=== PATIENT | male | born 1950 | race Caucasian/White ===

== ENCOUNTER 2017-07-18 03:31 | Inpatient (IN) | payer OTHER ==
[~2017-07-18] VITALS: Ht 165.1 cm; Wt 73.3 kg
[2017-07-18 05:05] LABS: BASOPHIL % 0.1 % (0-2); PLATELET COUNT 267 x10^3mcL (130-400); RED CELL DISTRIBUTION WIDTH 13.8 % (11.5-14.5)
[2017-07-18 05:18] LABS: CALCIUM 9.4 mg/dL (8.5-10.1); CARBON DIOXIDE 24.4 mmol/L (21-32); CHLORIDE SERUM 99 mmol/L (98-107); CREATININE SERUM 1.1 mg/dL (0.7-1.3); GFR1 > 60 mL/min; GLUCOSE SERUM 213 mg/dL (74-106); POTASSIUM SERUM 3.1 mmol/L (3.5-5.1); SODIUM SERUM 131 mmol/L (136-145)
[2017-07-18 05:21] LABS: ALBUMIN 4.2 g/dL (3.4-5.0); ALKALINE PHOSPHATASE 52 U/L (46-116); ALT/SGPT 40 U/L (16-63); AST/SGOT 25 U/L (15-37); BILIRUBIN TOTAL 0.72 mg/dL (0.20-1.00); LIPASE 93 IU/L (73-393); TOTAL PROTEIN, SERUM 8.1 g/dL (6.4-8.2)
[2017-07-18 09:29] LABS: microscopic required? NO
[2017-07-18 10:16] LABS: UA SPECIFIC GRAVITY <=1.005 (1.005-1.035); urine erythrocyte NEGATIVE (NEGATIVE)
[2017-07-18] MEDS ORDERED: GLIMEPIRIDE4 M1 PO (10:31)
[2017-07-18] MEDS ORDERED: ASPIR 8181 MG PO (10:31)
[2017-07-18] MEDS ORDERED: ACT15 PO (10:32)
[2017-07-18] MEDS ORDERED: TAMSULOSIN HYD0.4 M1 PO (10:33)
[2017-07-18] MEDS ORDERED: SIMVASTATIN20 M1 PO (10:34)
[2017-07-18] MEDS ORDERED: METFORMIN HCL1000 MG PO (10:34)
[2017-07-18 11:42] LABS: CHOLESTEROL/HDL RATIO 3.4; MAGNESIUM 1.9 mg/dL (1.8-2.4); PHOSPHOROUS 2.7 mg/dL (2.5-4.9)
[2017-07-18 11:51] LABS: FREE T4 1.51 ng/dL (0.76-1.46); T4(THYROXINE) 10.1 ug/dL (4.7-13.3)
[2017-07-18 12:04] LABS: T3 TOTAL 1.04 ng/mL
[2017-07-18 13:04] VITALS: BP 117/98
[2017-07-18 13:34] VITALS: BP 97/46
[2017-07-18 17:16] VITALS: BP 95/53
[2017-07-18 20:52] VITALS: BP 96/48
[2017-07-18 21:18] LABS: AMPHETAMINE QUAL UR NONE DETECTED (NEG <=1000)
[2017-07-19 05:21] VITALS: BP 110/52
[2017-07-19 07:48] LABS: BASOPHIL % 0.3 % (0-2); PLATELET COUNT 184 x10^3mcL (130-400); RED CELL DISTRIBUTION WIDTH 14.2 % (11.5-14.5)
[2017-07-19 07:54] LABS: CARBON DIOXIDE 25.9 mmol/L (21-32); CHLORIDE SERUM 107 mmol/L (98-107); GFR1 > 60 mL/min; GLUCOSE SERUM 165 mg/dL (74-106); POTASSIUM SERUM 3.4 mmol/L (3.5-5.1); SODIUM SERUM 140 mmol/L (136-145)
[2017-07-19 07:58] LABS: MAGNESIUM 1.8 mg/dL (1.8-2.4); PHOSPHOROUS 2.8 mg/dL (2.5-4.9)
[2017-07-19 08:50] VITALS: BP 90/53
[2017-07-19 13:29] VITALS: BP 99/56
[2017-07-19 16:56] VITALS: BP 103/60
[2017-07-19 18:38] LABS: BASOPHIL % 0.3 % (0-2); PLATELET COUNT 204 x10^3mcL (130-400)
[2017-07-19 18:44] LABS: RED CELL DISTRIBUTION WIDTH 14.7 % (11.5-14.5)
[2017-07-19 22:16] VITALS: BP 92/53
[2017-07-20 05:45] VITALS: BP 109/69
[2017-07-20 06:37] LABS: CALCIUM 8.3 mg/dL (8.5-10.1); CARBON DIOXIDE 27.1 mmol/L (21-32); CHLORIDE SERUM 106 mmol/L (98-107); CREATININE SERUM 1.1 mg/dL (0.7-1.3); GFR1 > 60 mL/min; GLUCOSE SERUM 109 mg/dL (74-106); SODIUM SERUM 142 mmol/L (136-145)
[2017-07-20 06:44] LABS: BASOPHIL % 0.4 % (0-2); PLATELET COUNT 204 x10^3mcL (130-400)
[2017-07-20 06:56] LABS: RED CELL DISTRIBUTION WIDTH 14.6 % (11.5-14.5)
[2017-07-20 09:50] VITALS: BP 132/67
[2017-07-20 10:53] VITALS: BP 132/67
== END 2017-07-20 14:33 | disposition home or self-care (01) | DRG 871 ==
LOC: ED 03:31 → DU 09:54 → MU 07-19 11:03
PROVIDERS: Emergency Medicine; ADMIT Family Medicine
DX: A41.9 Sepsis, unspecified organism (principal); N17.0 Acute kidney failure with tubular necrosis; E87.1 Hypo-osmolality and hyponatremia; D68.69 Other thrombophilia; K52.9 Noninfective gastroenteritis and colitis, unspecified; R65.20 Severe sepsis without septic shock; E86.0 Dehydration; E11.51 Type 2 diabetes mellitus with diabetic peripheral angiopathy without gangrene; E11.65 Type 2 diabetes mellitus with hyperglycemia; E87.6 Hypokalemia; E78.5 Hyperlipidemia, unspecified; E03.9 Hypothyroidism, unspecified; D64.9 Anemia, unspecified; N28.1 Cyst of kidney, acquired; N40.0 Benign prostatic hyperplasia without lower urinary tract symptoms; E66.3 Overweight; Z68.26 Body mass index [BMI] 26.0-26.9, adult
CPT/HCPCS: 83880; 84439; 87046; 87046-59; G0480; J2405; J2543; J3480; J3490; J7030; Q0092; Q9967